=== PATIENT | female | born 1990 | race American Indian/Alaskan Native ===

== ENCOUNTER 2016-08-24 17:58 | Emergency (ER) | payer MEDICAID ==
[2016-08-24 20:25] LABS: Basophils % (Auto) 1.1 % (0.0-1.8); Eosinophils % (Auto) 0.3 % (0.0-4.3); Hematocrit 38.4 % (30.3-42.9); Hemoglobin 12.7 gm/dl (10.1-14.3); Mean Corpuscular HGB Conc 33 % (30-34); Mean Corpuscular Hemoglobin 28 pg (28-32); Mean Corpuscular Volume 86 fl (79-97); Platelet Count 258 K/mm3 (140-440); Red Blood Count 4.47 M/mm3 (3.65-5.03); Red Cell Distribution Width 13.6 % (13.2-15.2); White Blood Count 4.9 K/mm3 (4.5-11.0)
[2016-08-24 20:29] LABS: Bilirubin,Urine NEG (Negative); Blood,Urine LG (Negative); Ketones,Urine NEG (Negative); Leukocyte Esterase,Urine SM (Negative); Mucus,Urine 3+ /HPF; Nitrite,Urine NEG (Negative); Urobilinogen,Urine < 2.0 mg/dL (<2.0)
[2016-08-24 20:42] LABS: Anion Gap 20 mmol/L; BUN/Creatinine Ratio 14.28; Blood Urea Nitrogen 10 mg/dL (7-17); Calcium 9.2 mg/dL (8.4-10.2); Carbon Dioxide 22 mmol/L (22-30); Chloride 100.3 mmol/L (98-107); Glucose 76 mg/dL (65-100); Potassium 3.7 mmol/L (3.6-5.0); Sodium 139 mmol/L (137-145)
--- NOTE | 2016-08-24 21:20 | Emergency Department Report ---
ED Female HPI - General Chief complaint: Vaginal Bleeding Stated complaint: 10WKS PREG/VAG BLEED Time Seen by Provider: 08/24/16 20:34 Source: patient Mode of arrival: Ambulatory Limitations: No Limitations - History of Present Illness Initial comments: 26-year-old female past medical history irregular periods, history of miscarriage in 2014 presents with complaint of passing clots and vaginal bleeding since yesterday. Patient states she took a test was positive approximately 7 weeks ago. States she has minor crampy lower abdominal pain since yesterday. Denies any fever or chills MD Complaint: vaginal bleeding, pelvic pain Onset/Timin -: days(s) Location: suprapubic Severity: moderate Severity scale (0 -10): 4 Quality: cramping Consistency: constant Are you Now?: Yes (pt states she is ~ 10 weeks preg) Associated Symptoms: vaginal bleeding - Related Data Sexually active: Yes Allergies Allergy/AdvReac Type Severity Reaction Status Date / Time latex Allergy Anaphylaxis Verified 08/24/16 19:38 ED Review of Systems ROS: Stated complaint: 10WKS PREG/VAG BLEED Other details as noted in HPI Constitutional: denies: chills, fever Eyes: denies: eye pain, eye discharge, vision change ENT: denies: ear pain, throat pain Respiratory: denies: cough, shortness of breath, wheezing Cardiovascular: denies: chest pain, palpitations Endocrine: no symptoms reported Gastrointestinal: denies: abdominal pain, nausea, diarrhea Genitourinary: denies: urgency, dysuria, discharge Musculoskeletal: denies: back pain, joint swelling, arthralgia Skin: denies: rash, lesions Neurological: denies: headache, weakness, paresthesias Psychiatric: denies: anxiety, depression Hematological/Lymphatic: denies: easy bleeding, easy bruising ED Past Medical Hx - Past Medical History Previous Medical History?: No - Surgical History Past Surgical History?: Yes Additional Surgical History: DNC 2014 - Social History Smoking Status: Never Smoker Substance Use Type: None ED Physical Exam - General Limitations: No Limitations General appearance: alert, in no apparent distress - Head Head exam: Present: atraumatic, normocephalic - Eye Eye exam: Present: normal appearance, PERRL, EOMI - ENT ENT exam: Present: mucous membranes moist - Neck Neck exam: Present: normal inspection - Respiratory Respiratory exam: Present: normal lung sounds bilaterally. Absent: respiratory distress - Cardiovascular Cardiovascular Exam: Present: regular rate, normal rhythm. Absent: systolic murmur, diastolic murmur, rubs, gallop - GI/Abdominal GI/Abdominal exam: Present: soft, normal bowel sounds - Speculum exam: Present: vaginal bleeding - Extremities Exam Extremities exam: Present: normal inspection, full ROM - Back Exam Back exam: Present: normal inspection - Neurological Exam Neurological exam: Present: alert, oriented X3, CN II-XII intact, normal gait - Psychiatric Psychiatric exam: Present: normal affect, normal mood - Skin Skin exam: Present: warm, dry, intact, normal color. Absent: rash ED Course Vital Signs 08/24/16 19:29 Temperature 98.1 F Pulse Rate 73 Respiratory 18 Rate Blood Pressure 125/85 O2 Sat by Pulse 100 Oximetry ED Medical Decision Making - Lab Data Result diagrams: 08/24/16 20:06 08/24/16 20:15 - Medical Decision Making A/P: Miscarriage, vaginal bleeding 1-I discussed case with INFORMATION SERVICES ASSISTANT Dr. Mcdowell. As patient is antibody negative integument screen will administer RhoGAM patient denies ever having had RhoGAM in the past 2-pt to have follow-up appointment tomorrow morning at 11:[address] Farah at [address] [place] [address], 3-RhoGAM administered 4-CBC normal, I discussed results of ultrasound with Dr. Mcdowell, Dr. Mcdowell does not think patient has retained risks of conception, this is a clot that is passing thru cervix, not impressed by size. 5- Dr. Velasquez notified before discharge. Critical care attestation.: If time is entered above; I have spent that time in minutes in the direct care of this critically ill patient, excluding procedure time. ED Disposition Clinical Impression: Spontaneous Disposition: DISCHARGED TO HOME OR SELFCARE Is pt being admited?: No Does the pt Need Aspirin: No Condition: Stable Instructions: Spontaneous Miscarriage (ED) Additional Instructions: Patient to follow-up at 11:[address] at [address] [place] [address]. phone number is with Dr. Farah INFORMATION SERVICES ASSISTANT as per Dr. Mcdowell INFORMATION SERVICES ASSISTANT demolition expert Referrals: GIANLUCA FARAH MD [Staff Physician] - 3-5 Days Forms: Work/School Release Form(ED) Time of Disposition: 02:24
--- NOTE | 2016-08-24 22:25 | Ultrasound Report ---
FINAL REPORT PROCEDURE: US TRANSVAGINAL TECHNIQUE: Real-time transvaginal sonography in multiple planes of the pelvis was performed with image documentation. Grayscale, color flow Doppler imaging and velocity spectral waveform analysis of the ovaries was employed (duplex imaging). CPT 85947 and 56305 HISTORY: pelvic pain 10 weeks preg by lmp COMPARISON: No prior studies are available for comparison. FINDINGS: UTERUS Size: 5.6 x 2.4 x 3.7 cm. Endometrial thickness: 3.4 mm. Orientation: anteverted. Cervix: There is a mass in the endocervical canal and vagina measuring 1.4 x 1 x 3.9 centimeters. This could be a hematoma or retained products of conception.. Fibroids/masses: None. RIGHT Ovary: 1.5 x 0.6 x 1 cm. Appearance: There is a 1 centimeter complex possibly hemorrhagic cyst.. Doppler images: Normal spectral waveforms and color flow. The systolic and diastolic velocities are within normal limits. LEFT Ovary: 1.6 x 0.9 x 0.9 cm. Appearance: Normal. Doppler images: Normal spectral waveforms and color flow. The systolic and diastolic velocities are within normal limits. Pelvic fluid: None. IMPRESSION: No evidence of viable is identified. There is a mass in the endocervical canal and vagina measuring 1.4 x 1 x 3.9 centimeters. This could be a hematoma or retained products of conception. There is a hemorrhagic cyst in the right ovary measuring 1 centimeter.
--- NOTE | 2016-08-24 22:26 | Ultrasound Report ---
FINAL REPORT PROCEDURE: US TRANSVAGINAL TECHNIQUE: Real-time transvaginal sonography in multiple planes of the pelvis was performed with image documentation. Grayscale, color flow Doppler imaging and velocity spectral waveform analysis of the ovaries was employed (duplex imaging). CPT 80485 and [id number] HISTORY: pelvic pain 10 weeks preg by lmp COMPARISON: No prior studies are available for comparison. FINDINGS: UTERUS Size: 5.6 x 2.4 x 3.7 cm. Endometrial thickness: 3.4 mm. Orientation: anteverted. Cervix: There is a mass in the endocervical canal and vagina measuring 1.4 x 1 x 3.9 centimeters. This could be a hematoma or retained products of conception.. Fibroids/masses: None. RIGHT Ovary: 1.5 x 0.6 x 1 cm. Appearance: There is a 1 centimeter complex possibly hemorrhagic cyst.. Doppler images: Normal spectral waveforms and color flow. The systolic and diastolic velocities are within normal limits. LEFT Ovary: 1.6 x 0.9 x 0.9 cm. Appearance: Normal. Doppler images: Normal spectral waveforms and color flow. The systolic and diastolic velocities are within normal limits. Pelvic fluid: None. IMPRESSION: No evidence of viable is identified. There is a mass in the endocervical canal and vagina measuring 1.4 x 1 x 3.9 centimeters. This could be a hematoma or retained products of conception. There is a hemorrhagic cyst in the right ovary measuring 1 centimeter.
[2016-08-25 03:06] VITALS: BP 130/80
== END 2016-08-25 02:55 | disposition home or self-care (01) ==
LOC: ED 17:58
DX: O03.9 Complete or unspecified spontaneous abortion without complication (principal); Z3A.10 10 weeks gestation of pregnancy; Z91.040 Latex allergy status
CPT/HCPCS: 36415; 76830; 76856; 80048; 81001; 84702; 84703; 85025; 85461; 86850; 86900; 86901; 99284; J2790